=== PATIENT | female | born 1980 | race African-American/Black ===

== ENCOUNTER 2016-07-08 23:57 | Emergency (ER) | payer SELFPAY ==
[~2016-07-08] VITALS: Ht 167.6 cm; Wt 54.4 kg
[2016-07-08 23:57] VITALS: BP 136/100; PULSE 99; RESP 14; TEMP 98.6; O2SAT 99
--- NOTE | 2016-07-08 23:57 | NUR ---
Patient to [facility] for evaluation. Side rails up. Report given to JOVANA Lopez.
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
--- NOTE | 2016-07-09 00:30 | NUR ---
JERRELL Brown at bedside examining patient.
[2016-07-09 01:30] VITALS: BP 136/90; PULSE 90; RESP 14; TEMP 98.6; O2SAT 99
--- NOTE | 2016-07-09 01:31 | NUR ---
Pt to be discharged to [facility] officer custody via handcuffs by ambulation. AAOx4. No distress noted. Ambulated out the ER bay without incident.
== END 2016-07-09 01:31 ==
LOC: SED 23:57
DX: Z02.89 Encounter for other administrative examinations (principal); Z04.3 Encounter for examination and observation following other accident; V89.2XXA Person injured in unspecified motor-vehicle accident, traffic, initial encounter; Y93.89 Activity, other specified; Y99.8 Other external cause status; Y92.89 Other specified places as the place of occurrence of the external cause
CPT/HCPCS: 99283